=== PATIENT | male | born 1935 | race Caucasian/White ===

== ENCOUNTER 2018-02-18 22:11 | Emergency (ER) | payer BC, OTHER ==
[~2018-02-18] VITALS: Ht 172.7 cm; Wt 90.7 kg
[2018-02-18 22:20] VITALS: BP_SYST 176
[2018-02-18] MEDS ORDERED: cloNIDine HCL 0.1 MG TABLET PO ONE (22:45)
[2018-02-19 00:36] VITALS: BP_SYST 138
== END 2018-02-19 00:36 | disposition home or self-care (01) ==
LOC: SED 22:11
DX: I10 Essential (primary) hypertension (principal)
CPT/HCPCS: 93005; 99283

== ENCOUNTER 2020-06-26 20:31 | Emergency (ER) | payer OTHER ==
[~2020-06-26] VITALS: Ht 172.7 cm; Wt 86.2 kg
[2020-06-26 20:39] VITALS: BP_SYST 151
[2020-06-26 21:30] VITALS: BP_SYST 133
== END 2020-06-26 21:30 | disposition home or self-care (01) ==
LOC: SED 20:31
DX: I10 Essential (primary) hypertension (principal)
CPT/HCPCS: 99281

== ENCOUNTER 2021-03-22 21:23 | Emergency (ER) | payer MEDICARE, OTHER ==
[~2021-03-22] VITALS: Ht 170.2 cm; Wt 83.9 kg
[2021-03-22 21:25] VITALS: BP_SYST 147
[2021-03-22 22:19] LABS: BASOPHILS # (AUTO) 0.1 K/uL (0.0-0.2); BASOPHILS % (AUTO) 1.7 % (0.0-2.0); EOSINOPHILS # (AUTO) 0.4 K/uL (0.0-0.4); EOSINOPHILS % (AUTO) 4.7 % (0.0-4.0); HEMATOCRIT 31.7 % (36-54); HEMOGLOBIN 10.9 g/dL (14.0-18.0); LYMPHOCYTES # (AUTO) 1.4 K/uL (1.0-5.5); LYMPHOCYTES % (AUTO) 17.3 % (20.5-51.5); MEAN CORPUSCULAR HEMOGLOBIN 31 pg (27-31); MEAN CORPUSCULAR HGB CONC 34 % (32-36); MEAN CORPUSCULAR VOLUME 90 fL (79.0-98.0); MONOCYTES # (AUTO) 0.6 K/uL (0.0-1.0); MONOCYTES % (AUTO) 8.3 % (1.7-9.3); NEUTROPHILS # (AUTO) 5.3 K/uL (1.8-7.7); PLATELET COUNT (AUTO) 219 K/uL (130-430); RED BLOOD CELL COUNT(AUTO) 3.52 MIL/uL (4.2-6.2); RED CELL DISTRIBUTION WIDTH 14.6 % (9.0-15.0); WHITE BLOOD COUNT (AUTO) 7.8 K/uL (4.8-10.8)
[2021-03-22 22:33] LABS: ANION GAP 9 (5-15); CALCIUM 8.8 mg/dL (8.4-11.0); CHLORIDE 109 mmol/L (98-107); GLUCOSE 169 mg/dL (70-99); POTASSIUM 5.3 mmol/L (3.5-5.1); SODIUM SERUM 141 mmol/L (136-145); UREA NITROGEN, BLOOD 44 mg/dL (8-21)
[2021-03-22 22:39] LABS: ALANINE AMINOTRANSFERASE 18 U/L (12-78); ALBUMIN 3.7 g/dL (3.4-4.8); ASPARTATE AMINOTRANSFERASE 17 U/L (10-37); TOTAL BILIRUBIN 0.3 mg/dL (0.0-1.0)
[2021-03-22] MEDS ORDERED: MIRT15TA7 PO (23:28)
[2021-03-22] MEDS ORDERED: TAMS-11 PO (23:28)
[2021-03-23 01:33] VITALS: BP_SYST 147
== END 2021-03-23 01:33 | disposition left against medical advice (07) ==
LOC: SED 21:23
DX: R06.02 Shortness of breath (principal); I10 Essential (primary) hypertension; Z79.899 Other long term (current) drug therapy
CPT/HCPCS: 36415; 71045; 80053; 83880; 84484; 85025; 85379; 93005; 99285

== ENCOUNTER 2021-03-23 14:33 | Emergency (ER) | payer MEDICARE ==
[~2021-03-23 14:33] MED LIST: MIRT15TA7 PO; TAMS-11 PO
== END 2021-03-23 17:37 | disposition left against medical advice (07) ==
LOC: SED 14:33
DX: R79.9 Abnormal finding of blood chemistry, unspecified (principal); Z53.21 Procedure and treatment not carried out due to patient leaving prior to being seen by health care provider